=== PATIENT | female | born 1995 | race Caucasian/White ===

== ENCOUNTER 2017-04-27 09:54 | Emergency (ER) | payer OTHER ==
[2017-04-27 10:49] VITALS: BP 129/87; PULSE 88; RESP 18; TEMP 97.9; O2SAT 100
== END 2017-04-27 11:15 | disposition home or self-care (01) | DRG 605 ==
LOC: SUPCPDRO 09:54 → ED 09:54
DX: S40.021A Contusion of right upper arm, initial encounter (principal); W23.0XXA Caught, crushed, jammed, or pinched between moving objects, initial encounter; Y99.0 Civilian activity done for income or pay
CPT/HCPCS: 73070; 99282; 99283